=== PATIENT | male | born 1960 | race Caucasian/White ===

== ENCOUNTER → 2018-06-14 | Outpatient (CLI) | payer OTHER ==
[2018-06-14 14:23] LABS: CREATININE 0.8 mg/dL (0.5-1.5)
== END | disposition home or self-care (01) ==
LOC: LAB 13:37
PROVIDERS: ATTEND Internal Medicine Gastroenterology
DX: R97.8 Other abnormal tumor markers (principal)
CPT/HCPCS: 36415; 82565; 84520

== ENCOUNTER → 2018-06-29 | Outpatient (CLI) | payer OTHER ==
[~2018-06-29] MED LIST: IOHEXOL 350 MG/ML 100ML INFUS..BTL IV ONE
== END | disposition home or self-care (01) ==
LOC: RAH 07:37
PROVIDERS: ATTEND Internal Medicine Gastroenterology
DX: K74.60 Unspecified cirrhosis of liver (principal)
CPT/HCPCS: 74170; Q9967